=== PATIENT | male | born 1955 | race Caucasian/White ===

== ENCOUNTER 2017-11-30 11:51 | Emergency (ER) | payer BC ==
[~2017-11-30] VITALS: Ht 175.3 cm; Wt 89.4 kg
[2017-11-30] MEDS ORDERED: TRESIBA FL100 UNIT/1 SUBQ (12:05)
[2017-11-30] MEDS ORDERED: FIASP 100100 UNIT/1 SUBQ (12:06)
[2017-11-30 12:35] LABS: ABSOLUTE BASOPHILS 0.1 thou/uL (0.0-0.2); ABSOLUTE LYMPHOCYTES 1.1 thou/uL (0.8-5.3); ABSOLUTE MONOCYTES 0.9 thou/uL (0.0-1.2); BASOPHILS 0.9 %; EOSINOPHILS 0.6 %; HEMATOCRIT 46.5 % (42.0-52.0); HEMOGLOBIN 15.8 gm/dL (14.0-18.0); LYMPHOCYTES 13.6 %; MCH 31.5 pg (26.0-34.0); MCHC 33.9 g/dL (28.0-37.0); MPV 9.2 fl. (7.2-11.1); NUCLEATED RBCS 0 /100WBC; PLATELET COUNT* 224 thou/uL (150-400); POLYS 73.9 %; RBC 5.01 mil/uL (4.50-6.00); RDW-CV 13.2 % (10.5-14.5); WBC 8.2 thou/uL (4.0-11.0)
[2017-11-30 12:43] LABS: CALCIUM 8.4 mg/dL (8.5-10.1); CREATININE 1.1 mg/dL (0.6-1.3); POTASSIUM 3.5 mmol/L (3.5-5.1)
[2017-11-30 12:53] LABS: ALBUMIN 3.3 g/dL (3.4-5.0); TOTAL BILIRUBIN 0.4 mg/dL (<0.1-1.0); TOTAL PROTEIN 6.6 g/dL (6.4-8.2)
[2017-11-30] MEDS ORDERED: TESSALON PERLE100 MG PO (13:18)
[2017-11-30] MEDS ORDERED: PROAIR HFA8.5 GM INH (13:18)
[2017-11-30 13:38] VITALS: BP 150/86
== END 2017-11-30 13:40 | disposition home or self-care (01) ==
LOC: M.ERS 11:51
PROVIDERS: Nurse Practitioner Family
DX: J06.9 Acute upper respiratory infection, unspecified (principal); E11.319 Type 2 diabetes mellitus with unspecified diabetic retinopathy without macular edema; Z88.2 Allergy status to sulfonamides; Z79.4 Long term (current) use of insulin

== ENCOUNTER 2019-02-07 06:15 | Inpatient (IN) | payer BC ==
[~2019-02-07] VITALS: Ht 175.3 cm; Wt 86.2 kg
[~2019-02-07 06:15] MED LIST: FIASP 100100 UNIT/1 SUBQ; PROAIR HFA8.5 GM INH; TESSALON PERLE100 MG PO; TRESIBA FL100 UNIT/1 SUBQ
[2019-02-07] MEDS ORDERED: LIPITOR10 MG PO (06:27)
[2019-02-07] MEDS ORDERED: LISINOPRIL5 MG PO (06:27)
[2019-02-07] MEDS ORDERED: PROSCAR 5MG TABL5 MG PO (06:28)
[2019-02-07 06:45] LABS: HEMOGLOBIN 14.8 gm/dL (14.0-18.0); MCH 31.6 pg (26.0-34.0); MCHC 34.3 g/dL (28.0-37.0); MPV 9.1 fl. (7.2-11.1); NUCLEATED RBCS 0 /100WBC; PLATELET COUNT* 241 thou/uL (150-400); RBC 4.68 mil/uL (4.50-6.00); RDW-CV 13.5 % (10.5-14.5); WBC 15.8 thou/uL (4.0-11.0)
[2019-02-07 06:53] LABS: POTASSIUM 3.5 mmol/L (3.5-5.1)
[2019-02-07 06:58] LABS: ALBUMIN 3.5 g/dL (3.4-5.0); TOTAL BILIRUBIN 0.7 mg/dL (<0.1-1.0); TOTAL PROTEIN 6.8 g/dL (6.4-8.2)
--- NOTE | 2019-02-07 06:58 | NUR ---
ASSUMED CARE OF PT AT THIS TIME, PT DENIES PAIN BUT STATES HE DOES NOT FEEL WELL. PT HAS FLUIDS RUNNING WIDE OPEN, PT GIVEN URINAL AND EDUCATED TO MAKE SURE THAT IT GETS SENT TO THE LAB INSTEAD OF BEING DUMPED. WILL CONTINUE TO MONITOR AND ASSESS
[2019-02-07 07:04] LABS: INFLUENZA A ANTIGEN Negative (Negative); INFLUENZA B ANTIGEN Negative (Negative)
[2019-02-07 07:11] LABS: ABSOLUTE MONOCYTES 0.5 thou/uL (0.0-1.2); ABSOLUTE NEUTROPHILS 15.3 thou/uL (1.6-8.1); PLATELET ESTIMATE ADEQUATE
[2019-02-07 07:59] LABS: URINE BILIRUBIN NEGATIVE (Negative); URINE BLOOD NEGATIVE (Negative); URINE CLARITY CLEAR; URINE COLOR YELLOW; URINE GLUCOSE-RANDOM 1+ (Negative); URINE KETONES 2+ (Negative); URINE LEUKOCYTES-REFLEX NEGATIVE (Negative); URINE NITRITE-REFLEX NEGATIVE (Negative); URINE PROTEIN NEGATIVE (Negative); URINE SPECIFIC GRAVITY 1.015 (1.005-1.030); URINE UROBILINOGEN 0.2 E.U./dl (0.2-1.0)
--- NOTE | 2019-02-07 08:54 | NUR ---
REPORT GIVEN TO LACIE ARAUZ AT THIS TIME, PT TAKEN UP BY HOSPITAL STAFF IN WC AT THIS TIME. NO CONCERNS NOTED, WILL SIGN OFF AT THIS TIME
[2019-02-07 09:29] VITALS: BP 137/71
[2019-02-07] MEDS ORDERED: FIASP 100100 UNIT/1 SUBQ (11:10)
[2019-02-07] MEDS ORDERED: ASPIR-LOW81 MG PO (11:13)
[2019-02-07 12:25] LABS: AMP/METHAMP Negative (Negative); BARBITURATES Negative (Negative); BENZODIAZEPINES Negative (Negative); COCAINE Negative (Negative); METHADONE Negative (Negative); OPIATES Negative (Negative); PCP Negative (Negative); THC Negative (Negative)
[2019-02-07 15:32] VITALS: BP 128/70
--- NOTE | 2019-02-07 18:29 | NUR ---
PATIENT AMBULATING THROUGHOUT SHIFT. PATIENT GIVEN IS AND SCDS. PATIENT AWAKE IN BED. ALL SAFETY MEASURES MAINTAINED. PATIENT DENIES FURTHER NEEDS AT THIS TIME. PATIENT WEARING CONTINUOUS GLUCOSE MONITOR.
[2019-02-07 20:30] VITALS: BP 135/80
[2019-02-08 02:00] VITALS: BP 148/78
[2019-02-08 04:57] LABS: ABSOLUTE LYMPHOCYTES 0.6 thou/uL (0.8-5.3); ABSOLUTE MONOCYTES 0.6 thou/uL (0.0-1.2); BASOPHILS 0.1 %; HEMATOCRIT 39.7 % (42.0-52.0); HEMOGLOBIN 13.2 gm/dL (14.0-18.0); LYMPHOCYTES 5.5 %; MCH 31.1 pg (26.0-34.0); MCHC 33.3 g/dL (28.0-37.0); MCV 93.3 fL (80.0-100.0); MONOCYTES 5.2 %; MPV 9.2 fl. (7.2-11.1); NUCLEATED RBCS 0 /100WBC; PLATELET COUNT* 222 thou/uL (150-400); POLYS 89.2 %; RBC 4.25 mil/uL (4.50-6.00); RDW-CV 13.4 % (10.5-14.5); WBC 11.2 thou/uL (4.0-11.0)
[2019-02-08 05:31] LABS: CALCIUM 8.6 mg/dL (8.5-10.1); POTASSIUM 3.6 mmol/L (3.5-5.1)
[2019-02-08 07:55] VITALS: BP 150/74
[2019-02-08 15:48] VITALS: BP 150/68
--- NOTE | 2019-02-08 16:48 | NUR ---
SW met with pt and pt to complete initial assessment, introduce self, and SW role. Pt alert, oriented, pleasant. Pt lives at home with and is independent, active. Pt does not anticipate any dc needs at this time. SW to continue to follow to assist with safe dc planning if needs arise.
--- NOTE | 2019-02-08 18:28 | NUR ---
PATIENT AMBULATING IN ROOM THROUGHOUT SHIFT. ALL SAFETY MEASURES MAINTAINED. PATIENT AWAKE IN BED. PATIENT DENIES FURTHER NEEDS AT THIS TIME.
--- NOTE | 2019-02-09 04:57 | NUR ---
PATIENT SLEPT WELL DURING THIS SHIFT. PT AMBULATING IN HALLWAYS. PT WITH DIMINISHED LUNG SOUNDS; PT ON ROOM AIR. PT DENIES PAIN/NAUSEA. FREQUENTLY USED ITEMS AND CALL LIGHT WITHIN REACH. SIDERAILS UPX2. WILL CONTINUE TO MONITOR.
[2019-02-09 08:00] VITALS: BP 165/80
[2019-02-09 10:08] LABS: ABSOLUTE BASOPHILS 0.1 thou/uL (0.0-0.2); ABSOLUTE LYMPHOCYTES 1.1 thou/uL (0.8-5.3); ABSOLUTE MONOCYTES 0.5 thou/uL (0.0-1.2); ABSOLUTE NEUTROPHILS 8.8 thou/uL (1.6-8.1); BASOPHILS 0.7 %; EOSINOPHILS 0.1 %; HEMATOCRIT 40.7 % (42.0-52.0); LYMPHOCYTES 10.6 %; MCH 31.7 pg (26.0-34.0); MCHC 34.4 g/dL (28.0-37.0); MCV 92.2 fL (80.0-100.0); MONOCYTES 4.7 %; MPV 9.5 fl. (7.2-11.1); NUCLEATED RBCS 0 /100WBC; PLATELET COUNT* 208 thou/uL (150-400); POLYS 83.9 %; RBC 4.41 mil/uL (4.50-6.00); RDW-CV 13.1 % (10.5-14.5); WBC 10.5 thou/uL (4.0-11.0)
[2019-02-09 10:18] LABS: CALCIUM 8.9 mg/dL (8.5-10.1); CREATININE 1.1 mg/dL (0.6-1.3); POTASSIUM 3.9 mmol/L (3.5-5.1); TOTAL BILIRUBIN 0.5 mg/dL (<0.1-1.0); TOTAL PROTEIN 6.5 g/dL (6.4-8.2)
[2019-02-09 16:00] VITALS: BP 139/72
--- NOTE | 2019-02-09 17:01 | NUR ---
PT A&OX4 VSS. PT AMB UNASSISTED GAIT STEADY. INSULIN SCALE INCREASED TO ADDRESS ELEVATED BLOOD GLUCOSE. NO C/O PAIN AT THIS TIME. PT REQUESTS BREATHING TX THIS EVENING NEAR BED TIME. SCHEDULED IV ANTIBIOTICS ADMINISTERED ORDERED. IV SALINE LOCKED AT THIS TIME. PT RESTS IN ROOM WITH CALL LIGHT IN REACH.
[2019-02-09 21:00] VITALS: BP 149/82
--- NOTE | 2019-02-10 05:39 | NUR ---
PATIENT SLEPT WELL DURING THIS SHIFT. PT IS UP AD LIBAN TO BATHROOM. PT NEEDED NO INSULIN AT HS WITH BLOOD SUGAR AT 136. PT WITH DIMINISHED LUNG SOUNDS. PT RECEIVED BREATHING TREATMENT AT HS. PT DENIES NEEDS AT THIS TIME. WILL CONTINUE TO MONITOR.
[2019-02-10 07:49] VITALS: BP 140/75
[2019-02-10] MEDS ORDERED: AUGMENTIN 875-1 EACH PO (12:34)
[2019-02-10 12:40] VITALS: BP 140/75
--- NOTE | 2019-02-10 13:11 | NUR ---
PT A&OX4 VSS. NO C/O PAIN AT THIS TIME. PT AND STATE UNDERSTANDING OF DC INSTRUCTIONS AND RX INFORMATION PROVIDED. INSULIN ADMINISTERED ORDERED WITH NOON MEAL PRIOR TO DC. PT LEFT UNIT IN WC WITH ALL PERSONAL BELONGINGS. PT HOME MEDS RETURNED TO HIM PRIOR TO DC FROM UNIT WELL.
== END 2019-02-10 13:14 | disposition home or self-care (01) | DRG 871 ==
LOC: M.ERS 06:15 → M.TBA-ER 07:57 → M.3W 07:57
PROVIDERS: Emergency Medicine; ADMIT Internal Medicine
DX: A41.9 Sepsis, unspecified organism (principal); J18.1 Lobar pneumonia, unspecified organism; I10 Essential (primary) hypertension; E78.5 Hyperlipidemia, unspecified; N40.0 Benign prostatic hyperplasia without lower urinary tract symptoms; Z53.29 Procedure and treatment not carried out because of patient's decision for other reasons; E13.65 Other specified diabetes mellitus with hyperglycemia; E13.319 Other specified diabetes mellitus with unspecified diabetic retinopathy without macular edema; Z79.899 Other long term (current) drug therapy; Z79.4 Long term (current) use of insulin; Z88.2 Allergy status to sulfonamides; Z88.1 Allergy status to other antibiotic agents; Z87.891 Personal history of nicotine dependence

== ENCOUNTER 2020-05-21 05:53 | Emergency (ER) | payer OTHER ==
[~2020-05-21] VITALS: Ht 175.3 cm; Wt 93.0 kg
[~2020-05-21 05:53] MED LIST changes: +ASPIR-LOW81 MG PO; +AUGMENTIN 875-1 EACH PO; +LIPITOR10 MG PO; +LISINOPRIL5 MG PO; +PROSCAR 5MG TABL5 MG PO
[2020-05-21] MEDS ORDERED: FLOMAX0.4 MG PO (06:11)
[2020-05-21] MEDS ORDERED: BLACK ELDERBER1 EACH PO (06:12)
[2020-05-21] MEDS ORDERED: MULTI VITAMIN1 EACH PO (06:12)
[2020-05-21] MEDS ORDERED: PROBIOTIC1 EAC7 PO (06:12)
[2020-05-21 06:52] VITALS: BP 147/79
== END 2020-05-21 06:53 | disposition home or self-care (01) ==
LOC: M.ERS 05:53
DX: U07.1 COVID-19 (principal); E11.9 Type 2 diabetes mellitus without complications; I10 Essential (primary) hypertension; E78.5 Hyperlipidemia, unspecified; Z79.4 Long term (current) use of insulin; Z88.2 Allergy status to sulfonamides; Z88.1 Allergy status to other antibiotic agents